=== PATIENT | male | born 1950 ===

== ENCOUNTER 2022-02-13 11:20 | Emergency (ER) | payer MEDICARE, SELFPAY ==
[2022-02-13 11:28] VITALS: BP 110/66; PULSE 47; RESP 18; TEMP 36.1; O2SAT 97
--- NOTE | 2022-02-13 11:36 | CRLHL7_ITS ---
For Patients: As a result of the Cures Act, medical imaging exams and procedure reports are released immediately into your electronic medical record. You may view this report before your referring provider. If you have questions, please contact your health care provider. HISTORY: Laceration. TECHNIQUE: Three views of the ring finger of the left hand. COMPARISON: No prior. FINDINGS: There is no acute fracture or dislocation. 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 No radiopaque foreign body. IMPRESSION: 1. No acute fracture. 2. No radiopaque foreign body. 3. Degenerative changes of the DIP joint. Dictated by Josr Patel MD @ 02/13/2022 12:09:54 PM Dictated by: Josr Patel MD @ 02/13/2022 12:09:59 (Electronically Signed)
--- NOTE | 2022-02-13 11:37 | ED_ITS ---
HPI - Wound/Laceration General Chief Complaint: Laceration/Wound Stated Complaint: Finger Laceration Time Seen by Provider: 02/13/22 11:29 History of Present Illness HPI narrative: This 71-year-old male comes in with an injury to his left ring finger. He was using a miter saw and he thinks the board kicked back injuring his left ring finger. He has a small laceration on the distal portion of this finger with some surrounding ecchymosis and swelling involving the distal segment of the left ring finger. He is unsure of his tetanus status. He is taking Plavix. At the time of his arrival here his bleeding is stopped. Related Data Allergies Allergy/AdvReac Type Severity Reaction Status Date / Time Sulfa (Sulfonamide Allergy Mild Rash Verified 02/13/22 11:32 Antibiotics) Review of Systems Status of ROS: Reports: 10 or more systems reviewed and unremarkable except as noted in History and below Narrative: Constitutional: No fevers, no weight gain or loss. Eyes: No discharge. No vision changes. HENT: No congestion, no sore throat, no ear pain. Cardiovascular: No chest pain, no palpitations. Respiratory: No shortness of breath, no wheezes, no cough. Gastrointestinal: No abdominal pain, no vomiting, no diarrhea. Genitourinary: No dysuria, no hematuria. Musculoskeletal: Normal range of motion. Left ring finger injury as described above. Skin: No rashes, no pruritis. Neurological: No dizziness, weakness, sensory change, speech change. Endo/Heme/Allergies: No bruising or bleeding. No polydipsia. Pysch: no suicidality, no anxiety, no insomnia. All other systems reviewed and are negative. Exam Narrative: Exam Narrative: Constitutional: Well-developed, well-nourished, no acute distress. HEENT: Normocephalic, atraumatic. Neck: Normal range of motion. Nontender. Supple. Heart: Intact distal pulses. Lungs: No chest discomfort. No wheezes, rhonchi, or rales. Abdomen: Nontender. Back: Normal range of motion. Extremities: Normal range of motion. Left ring finger has ecchymosis and swelling in the distal portion with a less than 1 cm laceration on the tip of the finger. Skin: Intact. No rash. Warm. No erythema or pallor. Neurologic: No altered sensation. No weakness. Alert and oriented. Psychiatric: No suicidality. No anxiety or depression. No insomnia. Nursing notes and vitals signs are reviewed. Const: Vital Signs, click to edit/add: Vital Signs - 24 hr 02/13/22 11:28 Temperature 96.9 F L Pulse Rate [Right Pulse Oximeter] 47 L Respiratory Rate 18 Blood Pressure [Ri ght Upper Arm] 110/66 Pulse Oximetry 97 Course Vital Signs Vital signs: Initial Vital Signs Temperature 96.9 F L 02/13/22 11:28 Temperature Source Temporal Artery Scan 02/13/22 11:28 Pulse Rate 47 L 02/13/22 11:28 Pulse Rhythm 02/13/22 11:28 Respiratory Rate 18 02/13/22 11:28 Blood Pressure 110/66 02/13/22 11:28 Blood Pressure Mean 80 02/13/22 11:28 Blood Pressure Position Sitting 02/13/22 11:28 Pulse Oximetry 97 02/13/22 11:28 Oxygen Delivery Method 02/13/22 11:28 Vital Signs Temperature 96.9 F L 02/13/22 11:28 Pulse Rate 47 L 02/13/22 11:28 Respiratory Rate 18 02/13/22 11:28 Blood Pressure 110/66 02/13/22 11:28 Pulse Oximetry 97 02/13/22 11:28 Temperature 96.9 F L 02/13/22 11:28 Pulse Rate 47 L 02/13/22 11:28 Respiratory Rate 18 02/13/22 11:28 Blood Pressure 110/66 02/13/22 11:28 Pulse Oximetry 97 02/13/22 11:28 MDM - Wound/Laceration MDM Narrative Medical decision making narrative: This patient comes in with an injury to his left ring finger. This likely occurred from a kick back of a board that he was cutting with a miter saw. He is on Plavix and does have bruising in the distal portion of the left ring finger. An x-ray is obtained and shows no evidence of fracture or foreign object by my review. Radiology report is pending. The wound at the end of the finger measuring less than 1 cm in length was cleansed and then repaired with Dermabond. A Band-Aid was applied. Instructions were given regarding wound care. He is uncertain of his tetanus status so he did receive an updated vaccination at this visit. Discharge Plan Discharge Clinical Impression: Laceration Patient Disposition: Home, Self-Care Condition: Stable Additional Instructions: Left ring finger laceration. Keep wound clean and dry. Follow up with MD or return if worsening. Follow Up/Referrals: Siobhan Rolle DO [Primary Care Provider] - Stand Alone Forms: [facility] Info Instructions
[2022-02-13] MEDS: TETANUS/DIPHTH/PERTUSSIS 0.5 ML SYRINGE IM (12:42)
== END 2022-02-13 12:40 | disposition home or self-care (01) ==
PROVIDERS: Emergency Provider Emergency Medicine Emergency Medical Services; PCP Family Medicine
DX: S61.215A Laceration without foreign body of left ring finger without damage to nail, initial encounter (principal); W31.2XXA Contact with powered woodworking and forming machines, initial encounter
CPT/HCPCS: 12001; 73140; 90471; 90715; 99283